=== PATIENT | male | born 1950 | race Caucasian/White ===

== ENCOUNTER 2019-04-13 10:43 | Emergency (ER) | payer OTHER ==
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
[~2019-04-13 10:43] MED LIST: DIPHTH/TETANUS/ACEL. PERTUSSIS IM ONE; IOPAMIDOL 76% 100 ML INFUS BTL 100 ML ONE; NS(*) 0.9% 1000 ML BAG 1,000 ML IV ONE
[2019-04-13] MEDS ORDERED: fentaNYL CITR 100 MCG/2 ML AMP ONE (10:59)
[2019-04-13] MEDS ORDERED: KETAMINE HCL 500 MG/5 ML VIAL ONE (11:03)
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
[2019-04-13 11:29] LABS: PLATELET COUNT, AUTOMATED 226 K/uL (150-450)
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
--- NOTE | 2019-04-13 11:42 | RADIOLOGY IMAGING REPORT ---
FACILITY: [facility] PATIENT NAME: Ra Garcia : 1950 MR: [id number] V: [id number] EXAM DATE: ORDERING PHYSICIAN: MELANIA MCGUIRE TECHNOLOGIST: Location: [facility] [place] Patient: Ra Garcai : 1950 Visit/Account:[id number] Date of Sevice: 04/13/2019 Single view of the chest Indication: Post chest tube placement. Comparison: Examination chest April 13, 2019 Findings: Heart is within normal limits. There is a right-sided chest tube. Pneumothorax has decreased in siz e with improved aeration and expansion of the right lung. Small pneumothorax is seen along the later al inferior aspect of the right lung. IMPRESSION: 1. Right-sided chest tube in place. Small remaining pneumothorax with improved aeration of the right lung. Report Dictated By: Juan Antonio Hennessy MD at 04/13/2019 11:32 AM Report E-Signed By: Juan Antonio Hennessy MD at 04/13/2019 11:33 AM WSN:[email or web address]
[2019-04-13 11:48] LABS: INR 2.14
[2019-04-13] MEDS ORDERED: KCL (*) 20 MEQ/100 ML PREMIX 100 ML IV SCH (12:00)
[2019-04-13] MEDS ORDERED: LR(*) 1000 ML BAG 1,000 ML ONE (12:07)
[2019-04-13] MEDS ORDERED: KETAMINE HCL(*)500MG/5ML VIAL 500 MG in NS(*) 0.9% 500 ML BAG 495 ML IVPB ONE (13:05)
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
[2019-04-13] MEDS ORDERED: NS(*) 0.9% 50 ML BAG 50 ML ONE (13:37)
[2019-04-13] MEDS ORDERED: IOPAMIDOL 76% 100 ML INFUS BTL 100 ML ONE (13:37)
[2019-04-13] MEDS ORDERED: HYDROCORTISONE 100 MG/2 ML IVP ONE (14:05)
[2019-04-13 14:09] VITALS: BP 86/42
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
== END 2019-04-13 14:49 | disposition short-term general hospital (02) ==
LOC: ER 10:51
DX: S22.41XA Multiple fractures of ribs, right side, initial encounter for closed fracture (principal); S27.0XXA Traumatic pneumothorax, initial encounter; E87.6 Hypokalemia; E27.8 Other specified disorders of adrenal gland; I95.9 Hypotension, unspecified
CPT/HCPCS: 32551; 36430; 70450; 70496; 70498; 71045; 71260; 72125; 72170; 74177; 80320; 83605; 83690; 83735; 85025; 85610; 85730; 86850; 86900; 86901; 86920; 93005; 99285; A7048; C1758; J7050; L0172; P9016; Q9967; 32556; 82040; 82247; 82310; 82374; 82435; 82565; 82947; 84075; 84132; 84155; 84295; 84450; 84460; 84520; A4340

== ENCOUNTER → 2019-04-13 | Outpatient (CLI) | payer OTHER | LOC: AMB 14:28 | PROVIDERS: ATTEND Nurse Practitioner | DX: T14.90XA Injury, unspecified, initial encounter (principal) ==

== ENCOUNTER → 2019-04-13 | Outpatient (CLI) | payer OTHER | LOC: AMB 09:20 | PROVIDERS: ATTEND Nurse Practitioner | DX: R07.81 Pleurodynia (principal); R06.02 Shortness of breath; V49.9XXA Car occupant (driver) (passenger) injured in unspecified traffic accident, initial encounter | CPT/HCPCS: A0425; A0433 ==